=== PATIENT | male | born 1965 | race Hispanic/Latino ===

== ENCOUNTER → 2017-06-05 | Outpatient (CLI) | payer MEDICAID | END | disposition home or self-care (01) | LOC: OIH 11:40 | PROVIDERS: ATTEND Family Medicine | DX: I10 Essential (primary) hypertension (principal) | CPT/HCPCS: 71046 ==

== ENCOUNTER → 2017-08-28 | Outpatient (CLI) | payer MEDICAID | END | disposition home or self-care (01) | LOC: OIH 16:30 | PROVIDERS: ATTEND Family Medicine | DX: M47.896 Other spondylosis, lumbar region (principal) | CPT/HCPCS: 72100 ==

== ENCOUNTER → 2018-08-14 | Outpatient (CLI) | payer MEDICARE | END | disposition home or self-care (01) | LOC: OIH 16:02 | PROVIDERS: ATTEND Family Medicine | DX: M79.652 Pain in left thigh (principal) | CPT/HCPCS: 73552 ==

== ENCOUNTER → 2020-01-11 | Outpatient (CLI) | payer MEDICARE | END | disposition home or self-care (01) | LOC: OIH 13:52 | PROVIDERS: ATTEND Family Medicine | DX: M79.641 Pain in right hand (principal); M79.644 Pain in right finger(s) | CPT/HCPCS: 73130 ==

== ENCOUNTER → 2020-01-12 | Outpatient (CLI) | payer MEDICARE | END | disposition home or self-care (01) | LOC: RAH 10:19 | PROVIDERS: ATTEND Family Medicine | DX: N50.3 Cyst of epididymis (principal); I86.1 Scrotal varices; N43.3 Hydrocele, unspecified | CPT/HCPCS: 76870 ==